=== PATIENT | female | born 1980 | race Caucasian/White ===

== ENCOUNTER 2018-01-23 11:45 | Emergency (ER) | payer OTHER ==
[2018-01-23 11:55] VITALS: TEMP 97.8; O2SAT 100
[2018-01-23] MEDS ORDERED: Sodium Chloride 0.9% 1,000 ML IV STA (12:14)
--- NOTE | 2018-01-23 12:38 | ED PDOC ---
HPI: Headache Time Seen by Provider: 01/23/18 11:51 Chief Complaint (Nursing): Headache Chief Complaint (Provider): headache History Per: Patient History/Exam Limitations: no limitations Onset/Duration Of Symptoms: Days (yesterday) Current Symptoms Are (Timing): Still Present Associated Symptoms: Nausea, Vomiting Additional Complaint(s): Irene Hays is a 37 year old female, with a past medical history of migraines, who presents to the emergency department complaining of a frontal headache associated with nausea and vomiting since yesterday. Patient reports a previous history of migraines with work up including CT negative. She denies any fever, chills, trauma or visual disturbances. No further medical complaints. PMD: Gavin Cast Past Medical History Reviewed: Historical Data, Nursing Documentation, Vital Signs Vital Signs: Last Vital Signs Temp 97.8 F 01/23/18 11:53 Pulse 67 01/23/18 11:53 Resp 16 01/23/18 11:53 BP 114/76 01/23/18 11:53 Pulse Ox 100 01/23/18 11:53 - Medical History PMH: Migraine - Surgical History Surgical History: No Surg Hx - Family History Family History: States: Unknown Family Hx - Social History Current smoker - smoking cessation education provided: No Alcohol: None Drugs: Denies - Home Medications Home Medications: Ambulatory Orders Medication Instructions Recorded Naproxen [Naprosyn] 500 mg PO Q12H #20 tab 01/23/18 - Allergies Allergies/Adverse Reactions: Allergies Allergy/AdvReac Type Severity Reaction Status Date / Time No Known Allergies Allergy Verified 01/23/18 12:04 Review of Systems ROS Statement: Except As Marked, All Systems Reviewed And Found Negative Constitutional: Negative for: Fever, Chills Eyes: Negative for: Vision Change Gastrointestinal: Positive for: Nausea, Vomiting Neurological: Positive for: Headache Physical Exam - Reviewed Nursing Documentation Reviewed: Yes Vital Signs Reviewed: Yes - Physical Exam Appears: Positive for: No Acute Distress Head Exam: Positive for: ATRAUMATIC, NORMAL INSPECTION, NORMOCEPHALIC Skin: Positive for: Normal Color, Warm, Dry Eye Exam: Positive for: Normal appearance, EOMI, PERRL Neck: Positive for: Normal, Painless ROM Cardiovascular/Chest: Positive for: Regular Rate, Rhythm. Negative for: Murmur Respiratory: Positive for: Normal Breath Sounds. Negative for: Respiratory Distress Gastrointestinal/Abdominal: Positive for: Normal Exam, Soft. Negative for: Tenderness Back: Positive for: Normal Inspection. Negative for: L CVA Tenderness, R CVA Tenderness, Vertebral Tenderness Extremity: Positive for: Normal ROM (upper and lower extremities). Negative for: Deformity, Swelling Neurologic/Psych: Positive for: Alert, call or contact centre team leader II-XII (intact), Oriented (x3), Cerebellar Tests (normal), Gait (steady). Negative for: Motor/Sensory Deficits (no focal deficits), Aphasia, Facial Droop - ECG O2 Sat by Pulse Oximetry: 100 (RA) Pulse Ox Interpretation: Normal - Progress Re-evaluation Time: 14:35 Condition: Improved (Headache improved) Medical Decision Making Medical Decision Making: Time: 11:51 Initial Plan: --Urine --Sodium Chloride 1,000 ml IV 100 mls/hr --Reglan 10 mg IVP --Toradol 30 mg IVP --Zofran inj 4 mg IVP --Reevaluation Scribe Attestation: Documented by Luis Ruiz, acting as a scribe for Robin Rosales MD. Provider Scribe Attestation: All medical record entries made by the Scribe were at my direction and personally dictated by me. I have reviewed the chart and agree that the record accurately reflects my personal performance of the history, physical exam, medical decision making, and the department course for this patient. I have also personally directed, reviewed, and agree with the discharge instructions and disposition. Disposition - Clinical Impression Clinical Impression: Migraine - Patient ED Disposition Is Patient to be Admitted: No Counseled Patient/Family Regarding: Diagnosis, Need For Followup, Rx Given - Disposition Referrals: Aníbal Kimbrough MD [Medical Doctor] - Disposition: Routine/Home Disposition Time: 14:36 Condition: FAIR Prescriptions: Naproxen [Naprosyn] 500 mg PO Q12H #20 tab Instructions: Migraine Headaches in Adults Forms: [email or web address] ([place]awk) Print Language: [email or web address]
[2018-01-23 16:06] VITALS: BP 104/75; PULSE 57; RESP 15
== END 2018-01-23 16:04 | disposition home or self-care (01) ==
LOC: H.ER 11:45
DX: G43.909 Migraine, unspecified, not intractable, without status migrainosus (principal)
CPT/HCPCS: 81025; 96374; 96375; 99284; J1885; J2405; J2765; J7030